=== PATIENT | female | born 2005 | race Two or more races ===

== ENCOUNTER 2025-03-04 12:21 | Emergency (ER) | payer MEDICAID, OTHER ==
[~2025-03-04] VITALS: Ht 157.5 cm; Wt 87.5 kg
[2025-03-04] MEDS: PANTOPRAZOLE 40 MG TAB PO ONE (13:15)
[2025-03-04] MEDS: SODIUM CHLORIDE 0.9% 1,000 ML IV ONE (13:15)
[2025-03-04] MEDS: LIDOCAINE VISCOUS 2% 15ML UD PO ONE (13:15)
[2025-03-04] MEDS: SUCRALFATE 1 GM TAB PO ONE (13:15)
--- NOTE | 2025-03-04 13:26 | ED.PDOC ---
GI ASSESSMENT HPI Comments HPI: 19 year old female presents to the ED with a chief complaint of nausea/vomiting onset today (03/04/25). Patient states she woke up this morning, experiencing nausea, experienced 1 episode of emesis, described as a pink color. Patient was experiencing diarrhea for the past week, now resolved, last night had a bowel m ovement, was brown with streaking blood. Patient states she has acid reflux, causes nausea/vomiting. Denies abdominal pain, fever, chills, diarrhea, headache, dizziness, chest pain, shortness of breath, dysuria, hematuria. No other symptoms or modifying factors present at this time. Initial Vitals BP: 126/85 HR: 101 RR: 18 O2 Sat: 95% Temp: 97.3 F Past Medical history: Anemia, PCOS Past Surgical history: Denies Medications: Iron, Wegovy Social History: Denies smoking, ETOH, and drug use. Allergies: NKDA yanes: Episode of hematemesis possible blood in stool History of anemia and GERD, PCOS HPI: Poor Historian. Past Medical History: Past Surgical History: REVIEW OF SYSTEMS: CONSTITUTIONAL: Denies acute: fever, diaphoresis, chills, generalized weakness. HEAD: Denies acute: headache, photophobia Eyes: Denies acute: Double vision, vision loss, eye pain, eye discharge. EARS: Denies acute: tinnitus, hearing loss, ear discharge, ear pain, THROAT: Denies acute: sore throat, swelling, difficulty swallowing , pain with swallowing, change in voice. NECK: Denies acute: neck pain, neck swelling, stiff neck. HEART: Denies acute : chest pain, palpitations, LUNGS: Denies acute: SOB, wheezing, cough, hemoptysis ABDOMEN: Denies acute: abdominal pain, Nausea, , diarrhea, melena , , SKIN: Denies acute: rash, redness, lesions, itchiness. EXTREMITIES: Denies acute: calf pain, numbness, tingling, weakness, denies pain in extremity. Denies acute: Low back pain. Neuro: Denies acute: focal neurological deficit, motor or sensory focal neurological deficit, tremors, seizure like activity, confusion, dizziness, change in mental status, loss of bowel or bladder function, cauda equina like symptoms. : Denies acute: dysuria, hematuria, flank pain, increase in urinary frequency. PSYCH: Denies acute: hallucination, suicidal ideation, homicidal ideation. FEMALE: Denies acute: abnormal vaginal bleeding, foul odor, unusual discharge. PHYSICAL EXAM: General: ---no----acute distress, awake and alert. Head: normocephalic, atraumatic. Neck: supple, trachea is midline, no swelling. Throat: Normal phonation. Eyes:, no erythema, no purulent discharge, no proptosis, no icterus. Heart: regular rate, regular rhythm, no significant murmur appreciated. Lungs: no apparent respiratory distress, Able to speak in full sentences. No wheezing, no rhonchi, no crackles. No stridors Clear to auscultation bilaterally. Abdomen: non tender to palpation, non distended, soft, no guarding, no rebound, + bowel sounds. Neuro: Awake, Alert, oriented to name, self, situation, follows commands GCS=15. Speech is normal. Skin: no petechia, no purpura, no cyanosis, non-pale, not jaundice. Lower extremities: --no - Pitting edema no deformity, no focal swelling, no calf TTP. Makes eye contact. moves all four extremities. Face: no apparent facial droop. Ambulating in the ED independently. ED COURSE: DISCLAIMER: This medical document was created using an electronic medical record system with voice recognition software and computerized dictation system. Although this document has been carefully reviewed, there might still be some phonetic and typographical errors. Occasional wrong-word or "sound-alike" substitutions may have occurred due to the inherent limitations of voice recognition software. These areas are purely typographical due to imperfections of the software programs and do not reflect any compromise in the patient's medical care. Please read the chart carefully and recognize, using context, where these substitutions have occurred. Chief Complaint: Nausea/Vomiting Time Seen by MD: 13:20 Reviewed Notes: Medications, Allergies Allergies: Coded Allergies: NO KNOWN ALLERGIES (Unverified , 03/04/25) Information Source: Patient Mode of Arrival: Ambulatory Timing: Hours Duration: Since onset Prehospital treatment: None Quality: Sharp Vomitus: Other (pink) Stool: Blood Streaked, Brown Severity: Moderate Recent: Iron Supplements Recent Hx of: None Modifying Factors: Nothing Associated sign and symptoms: Nausea, Vomiting, Hematemesis Past Medical History PAST MEDICAL HISTORY: Anemia Surgical History: Denies all surgeries [employer]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 Was a procedure done?: No X-Ray, Labs, Meds, VS Vital Signs Date Time Temp Pulse Resp B/P (MAP) Pulse Ox O2 Delivery O2 Flow Rate FiO2 03/04/25 14:29 98.4 93 16 122/73 (89) 100 98.4 03/04/25 14:29 93 16 100 Room Air 03/04/25 12:24 97.3 101 18 126/85 95 97.3 Lab Test 03/04/25 14:22 03/04/25 13:11 Range/Units White Blood Count 11.5 H 4.4-10.8 10^3/uL Red Blood Count 5.32 H 4.0-5.20 10^6/uL Hemoglobin 13.6 12.2-16.2 g/dL Hematocrit 43.0 36.0-46.0 % Mean Corpuscular Volume 80.8 80.0-100.0 fL Mean Corpuscular Hemoglobin 25.6 L 28.0-32.0 pg Mean Corpuscular Hemoglobin Concent 31.7 L 32.0-36.0 g/dL Red Cell Distribution Width 16.5 H 11.8-14.3 % Platelet Count 402 140-450 10^3/uL Mean Platelet Volume 9.5 6.9-10.8 fL Neutrophils (%) (Auto) 73.9 37.0-80.0 % Lymphocytes (%) (Auto) 18.1 10.0-50.0 % Monocytes (%) (Auto) 5.5 0.0-12.0 % Eosinophils (%) (Auto) 1.8 0.0-7.0 % Basophils (%) (Auto) 0.7 0.0-2.0 % Neutrophils # (Auto) 8.5 1.6-8.6 10 ^3/uL Lymphocytes # (Auto) 2.1 0.4-5.4 10 ^3/uL Monocytes # (Auto) 0.6 0-1.3 10 ^3/uL Eosinophils # (Auto) 0.2 0-0.8 10 ^3/uL Basophils # (Auto) 0.1 0-0.2 10 ^3/uL Nucleated Red Blood Cells 0.0 % Sodium Level 137 136-145 mmol/L Potassium Level 4.4 3.5-5.1 mmol/L Chloride Level 103 98-107 mmol/L Carbon Dioxide Level 25 20-31 mmol/L Anion Gap 9 5-15 Blood Urea Nitrogen < 5 L 9-23 mg/dL Creatinine 0.81 0.550-1.02 mg/dL Glomerular Filtration Rate Calc 107 >90 mL/min BUN/Creatinine Ratio 6.2 L 10.0-20.0 Serum Glucose 83 74-106 mg/dL Calcium Level 9.8 8.7-10.4 mg/dL Total Bilirubin 0.3 0.2-1.0 mg/dL Aspartate Amino Transferase (AST) 31 13-40 U/L Alanine Aminotransferase (ALT) 52 H 7-40 U/L Alkaline Phosphatase 103 46-116 U/L Total Protein 8.4 H 5.7-8.2 g/dL Albumin 4.6 3.2-4.8 g/dL Urine Color Yellow Yellow Urine Clarity Turbid H Clear Urine pH 6.0 5.0-9.0 Urine Specific [place] 1.026 1.001-1.035 Urine Protein Trace H Negative Urine Ketones Negative Negative Urine Blood 3+ H Negative /uL Urine Nitrite Negative Negative Urine Bilirubin Negative Negative Urine Urobilinogen Normal Negative mg/dL Urine Leukocyte Esterase 2+ Negative /uL Urine RBC 16 0 - 4 /hpf Urine Microscopic WBC 15 H 0-5 /HPF Urine Squamous Epithelial Cells Few <5 /hpf Urine Bacteria None seen None Seen /hpf Urine Mucus Few None Seen Urine Glucose Normal Normal mg/dL Urine Test Negative Negative Current Medications Medications (Trade) Dose Ordered Sig/Alvin Route Start Time Stop Time Status Last Admin Sodium Chloride 1,000 ml @ 1,000 mls/hr Q1H ONCE IV 03/04/25 13:15 03/04/25 14:14 DC 03/04/25 13:15 Sucralfate (Carafate Tab) 1 gm ONCE ONCE PO 03/04/25 13:15 03/04/25 13:16 DC 03/04/25 13:15 Pantoprazole Sodium (Protonix Tablet) 40 mg ONCE ONCE PO 03/04/25 13:15 03/04/25 13:16 DC 03/04/25 13:15 Lidocaine HCl (Xylocaine 2% Viscous) 10 ml ONCE ONCE PO 03/04/25 13:15 03/04/25 13:16 DC 03/04/25 13:15 Ceftriaxone Sodium 50 ml @ 100 mls/hr ONCE ONCE IV 03/04/25 15:15 03/04/25 15:44 DC 03/04/25 16:15 Time of 1ST Reevaluation: 13:50 Reevaluation 1ST: Unchanged Time of 2ND Reevaluation: 15:51 Reevaluation 2ND: Improved Patient Education/Counseling: Diagnosis, Treatment Family Education/Counseling: No Family Present Departure 1 Departure Time of Disposition: 15:03 Impression: Primary Impression: UTI (urinary tract infection) Additional Impressions: Hematemesis GI bleed Disposition: 01 HOME / SELF CARE / HOMELESS Admit to: Tele Condition: Stable Additional Instructions: Additional instructions: Please read all instructions provided in this packet carefully. You MUST follow-up with your primary care/family doctor in 1 to 2 days. If you are unable to see your primary care/family doctor, please return to our emergency room for re-assessment and re-evaluation in 1 to 2 days. Return to the emergency room here in our facility or to the nearest ER [facility] if your symptoms change or worsen. CONSULTATIONS: you MUST Follow-up for consultation as soon as possible with: gastroenterology in 1-2 days. Please call for appointment. You MUST call the consultants office yourself to make an appointment. You may need to arrange that through your insurance and/or your primary/family doctor. If you are unable to see the medical consultant in 1 to 2 days, you must return to our emergency room (or any other ER of your choice) for re-assessment and re- evaluation. Adequate fluid hydration. Although you have been discharged from the Emergency Department, this does not mean that you have a "clean bill of health". No definitive diagnosis for your symptoms has been made today. It is possible that you are in the process of developing a serious illness. This is why you must return to the ED without fail if any new or worsening symptoms develop. Avoid fatty greasy spicy food. Avoid caffeinated products. Avoid NSAIDs. e-Prescriptions Pantoprazole Sodium Sesquihydr (Protonix) 40 Mg Tab 40 MG PO DAILY for 7 Days, #7 TAB Prov: ASYA DE LUNA DO 03/04/25 Ondansetron Odt 4MG Tab (ZOFRAN PO) 4 Mg Tb 4 MG PO Q8HPRN PRN for 3 Days, #9 TAB ODT TAB-DISSOLVE IN MOUTH, THEN SWALLOW Prov: ASYA DE LUNA DO 03/04/25 Nitrofurantoin Monohydrate Mac (Macrobid) 100 Mg Cap 100 MG PO BID for 7 Days, #14 CAP Prov: ASYA DE LUNA DO 03/04/25 Discharged With: Self Critical Care Note Critical Care Time?: No I personally scribed for ASYA DE LUNA DO ([email or web address]) on 03/04/25 at 13:26. Electronically submitted by Karly Dooley ([email or web address]). I personally scribed for ASYA DE LUNA DO ([email or web address]) on 03/04/25 at 15:51. Electronically submitted by Karly Dooley ([email or web address]). ASYA DE LUNA DO Mar 04, 2025 13:26
[2025-03-04 14:19] LABS: Urine Protein, UAD TRACE (Negative)
[2025-03-04 14:45] LABS: Mean Corpuscular Hemoglobin 25.6 pg (28.0-32.0); Nucleated Red Blood Cells % 0.0 %
[2025-03-04 14:47] LABS: Hematocrit 43.0 % (36.0-46.0); Hemoglobin 13.6 g/dL (12.2-16.2); Mean Corpuscular Volume 80.8 fL (80.0-100.0)
[2025-03-04 14:51] LABS: Albumin 4.6 g/dL (3.2-4.8); Alkaline Phosphatase 103 U/L (46-116); Anion Gap 9 (5-15); Bilirubin, Total 0.3 mg/dL (0.2-1.0); Calcium 9.8 mg/dL (8.7-10.4); Carbon Dioxide 25 mmol/L (20-31); Chloride 103 mmol/L (98-107); Glucose 83 mg/dL (74-106); Potassium 4.4 mmol/L (3.5-5.1); Sodium 137 mmol/L (136-145)
[2025-03-04 14:52] LABS: Alanine Aminotransferase 52 U/L (7-40); BUN/Creatinine Ratio 6.2 (10.0-20.0); Blood Urea Nitrogen < 5 mg/dL (9-23); Total Protein 8.4 g/dL (5.7-8.2)
[2025-03-04] MEDS ORDERED: ZOFR4T PO (17:37)
[2025-03-04] MEDS ORDERED: PANT40TA2 PO (17:37)
[2025-03-04] MEDS ORDERED: NITR-87 PO (17:37)
[2025-03-04 18:00] VITALS: BP 101/63; PULSE 87; RESP 16; TEMP 97.8; O2SAT 100
== END 2025-03-04 18:17 | disposition home or self-care (01) ==
LOC: ER 12:21
DX: N39.0 Urinary tract infection, site not specified (principal); K92.0 Hematemesis; D64.9 Anemia, unspecified
CPT/HCPCS: 36415; 80053; 81001; 81025; 85025; 96361; 96365; 99284; J0696; J7030